=== PATIENT | female | born 1970 | race Caucasian/White ===

== ENCOUNTER → 2016-11-24 | Outpatient (CLI) | payer OTHER ==
[~2016-11-24] MED LIST: ASPIRIN ADULT L81 M1 PO; ATIVAN1 MG PO; CALCIUM 600 PO; CLONIDINE HCL0.2 MG PO; CYCLOBENZAPRINE10 MG PO; FLONASE0.05 %; GABAPENTIN300 MG PO; IBUPROFEN600 MG PO; LOSARTAN POTASS25 MG PO; MELATONIN3 MG; MOTRIN100 MG/5 M PO; PERCOCET1 TA1 PO; SUBOXONE1 MI3 PO; TRAZODONE HCL50 MG PO; VITAMIN D-31000 UNIT PO; WELLBUTRIN100 MG PO
--- NOTE | 2016-11-24 12:50 | DIAGNOSTIC IMAGING REPORT ---
PROCEDURE: US COMPLETE PELVIC W/TRANSVAG INDICATION: REEVAL RT OVARIAN CYST TECHNIQUE: Transabdominal and endovaginal martinez scale and color Doppler sonographic images of the female pelvis were obtained. COMPARISON: Pelvic ultrasound 09/15/2016 FINDINGS: TRANSABDOMINAL SCANS: Anteverted uterus. Normal kidneys. TRANSVAGINAL SCANS: The uterus measures 7.1 x 3.6 x 5.9 cm. 9 mm right posterior fibroid. Normal endometrial measures 7.9 mm. Right ovary measures 2.5 x 2.9 x 1.5 cm with a 1.6 cm follicle. Peripheral calcifications present. Interval resolution of the hemorrhagic cysts. Status post left oophorectomy. IMPRESSION: 1. Interval resolution of the right ovarian hemorrhagic cysts with residual 1.6 cm simple follicle 2. Left oophorectomy 3. 9 mm fibroid
== END ==
LOC: US SRH 11:56
DX: N83.01 Follicular cyst of right ovary (principal); D25.9 Leiomyoma of uterus, unspecified; Z90.721 Acquired absence of ovaries, unilateral

== ENCOUNTER 2016-11-27 08:55 | Outpatient (CLI) | payer OTHER | END 2016-11-27 23:00 | LOC: LAB SRH 08:55 | DX: N83.201 Unspecified ovarian cyst, right side (principal) | CPT/HCPCS: 90001; 90047; 90074; 90155; 90364; 91004; 92863; 95059; 98428 ==

== ENCOUNTER 2016-11-28 06:01 | Day surgery (SDC) | payer OTHER ==
--- NOTE | 2016-11-22 19:37 | HISTORY AND PHYSICAL ---
ADMITTED: 11/28/2016 CHIEF COMPLAINT: 1. Chronic vaginal discharge and right ovarian cysts HISTORY OF PRESENT ILLNESS: This patient has been seen previously for a chronic vaginal discharge despite a previous ablation. The discharge may have some blood in it. An ultrasound was done 09/15/2016 measuring her uterus at 7.8 cm, anteverted, with an endometrium that measured 11 mm. While this is within the normal range for thickness, it is thicker than would have been expected with her previous ablation. Nothing on the uterine ultrasound gave a reason for the chronic discharge that she is having. The discharge has been worked up and has been negative. On her ultrasound the right ovary also measured 4.7 cm with 3 discrete cystic structures measuring 13 mm and 15 mm that were described as hypervascular and were thought to potentially be 2 hemorrhagic cysts. There was a third cyst that measured 3.2 cm with lace-like internal echoes that may be an involuting hemorrhagic cyst, but seemed to be somewhat different from the first 2. The left ovary is surgically absent, although there was a small amount of adnexal fluid on that side. Options for further evaluation of her vaginal discharge were discussed with her and she has chosen to proceed with a hysteroscopy, D&C and repeat ablation. In addition, she was to have had a repeat ultrasound and if the cysts are still present, she would also be having a diagnostic laparoscopy. However, the ultrasound has not been done yet and hopefully she will have that done within the next couple days so that it can be reviewed prior to surgery. She is aware that a diagnostic laparoscopy is a fairly broad scope of surgical options and that any abnormal tissue can be removed at that time including the possibility of removal of her ovary. Attempts will be made to preserve the ovary if possible, since her other ovary has already been removed. The surgical procedures have been reviewed with her including risks and benefits of all of the procedures that have been scheduled. Surgical risks have also been discussed with her including infection, bleeding, damage to her structures, anesthesia, and the possibility of further surgery at the time or in the future. Informed consent has been signed. MEDICAL/SURGICAL HISTORY: Menstrual history: Includes menarche at age 13, LMP 11/15/2016. Obstetrical history: Includes 3 vaginal deliveries in 1989, 1994 and 2000, with 2 abortions in 1992 and 1994. 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 Past medical history: Anxiety, spinal stenosis, hypertension, herniated disk, PID and HSV. MEDICATIONS: 1. Flexeril 10 mg 1 p.o. every other evening. 2. Losartan 25 mg b.i.d. 3. Suboxone 12 mg sublingual daily. 4. Topamax 50 mg 1 daily. 5. Trazodone 100 mg half to 1 tablet every day after meals. ALLERGIES: 1. NO KNOWN DRUG ALLERGIES. SOCIAL HISTORY: She is , G5, P3. Reports smoking 7 cigarettes per day and denies alcohol and drug use. FAMILY HISTORY: Parents and siblings are alive. Her father has hypertension. Her paternal grandfather had diabetes and her paternal grandmother had ovarian cancer. She denies any history of heart disease or stroke. REVIEW OF SYSTEMS: She reports generalized enlarged lymph nodes for the past several months and states that the one in her right submandibular area is firm. She is planning to see Dr. Miller for further evaluation of this. Other than that, she denies headache, ear pain, throat pain, chest pain, shortness of breath, digestive disorders and joint and extremity problems. PHYSICAL EXAMINATION: VITAL SIGNS: She is 5 foot 2 inches, weighs 118.6, blood pressure 112/78, pulse 80, temperature 98.3. GENERAL: She is well-developed, well-nourished, alert, and oriented. HEART: Normal. LUNGS: Normal. ABDOMEN: Soft, nondistended. EXTREMITIES: No clubbing, cyanosis, or edema. IMPRESSION: 1. Chronic vaginal discharge. 2. Cysts in the right ovary, with a history of removal of her left ovary. 3. Enlarged lymph nodes. PLAN: Diagnostic laparoscopy, depending on her repeat ultrasound; hysteroscopy, dilatation and curettage, repeat ablation, scheduled for 11/28/2016.
--- NOTE | 2016-11-28 08:56 | Provider's Discharge Care Plan ---
Problem, Goal, Plan Problem List 1. Postoperative pain Goals: Improve function Instructions: Follow up as directed
--- NOTE | 2016-11-28 08:56 | Provider's Discharge Care Plan ---
Problem, Goal, Plan Problem List 1. Postoperative pain Goals: Improve function Instructions: Follow up as directed
[2016-11-28 10:27] VITALS: BP 130/83
--- NOTE | 2016-11-29 17:21 | OPERATIVE REPORT ---
DATE OF SURGERY: 11/28/2016 SURGEON: Tiffany Lubin DO SUSPECT ARTIST SUPERVISOR: None. PREOPERATIVE DIAGNOSES: 1. Chronic vaginal discharge 2. Left pelvic pain POSTOPERATIVE DIAGNOSES: 1. Chronic vaginal discharge 2. Left pelvic pain PROCEDURE PERFORMED: 1. Hysteroscopy 2. Dilation and currettage 3. Polypectomy ANESTHESIA: LMA. COMPLICATIONS: None. CONDITION: Stable. ESTIMATED BLOOD LOSS: Minimal. FLUIDS: 100 mL of LR. Blood administered: None. DRAINS: 0. URINE OUTPUT: 25 mL preoperatively. PATHOLOGY SPECIMEN: Endocervical curettings, endometrial curettings, including possible polyp. IMPLANTS/GRAFTS: None. SURGICAL FINDINGS: Uterus sounded to 6 cm, narrow, polypoid mass. SURGICAL TECHNIQUE: Preprocedural Note: The patient had been consented for a diagnostic laparoscopy due to some ovarian cysts. An ultrasound a couple days ago showed resolution of those ovarian cysts, and this was discussed with the patient. Although she does have some pelvic pain, she has chosen to cancel the diagnostic laparoscopy portion of her scheduled surgery and will wait to see if the hysteroscopy, D&C improves her pain or not. Options for the future have been discussed with her as well. The patient was taken to the operating room where her anesthesia was obtained. She was prepped and draped in the normal sterile fashion in the lithotomy position. A pelvic exam under anesthesia was normal, and a sterile speculum was placed. The anterior cervical lip was grasped with a single-toothed tenaculum, and the uterus was sounded to 6 cm. The cervix was circumferentially injected with 0.5% Marcaine with epinephrine and was then serially dilated to a #8-Occitan dilator. The hysteroscope was advanced into the cervical canal, which was clear. At or just above the internal os, there were a couple masses that appeared to be consistent with possible polyps. One in particular was visible in the superior cavity and appeared to have a hair attached to it. It was somewhat difficult to ascertain distance above the internal os. The ostia were not seen, and the cavity may have been a post-ablation cavity, or it is possible that it was the entry into the muscle wall. It seemed most consistent with a small, narrow post-ablation endometrial cavity, particularly in view of the hair that was visible in that area. Attempts were made to remove the polypoid mass using forceps. The camera was repositioned, and the polypoid mass appeared to have been removed. The scope was removed. Endocervical curettings were obtained along with endometrial curettings, which were sent along with the possible polyp. All instruments were then removed from the interior of the uterus. The tenaculum was removed as well, and no bleeding was noted from the tenaculum site. All instruments were then removed from the patient, and she was awakened from her anesthesia and taken to the recovery room in stable condition.
== END 2016-11-28 10:07 | disposition home or self-care (01) ==
LOC: OR SRH 06:01 → SCU SRH 06:05 → OR SRH 07:30 → SCU SRH 10:20
PROVIDERS: Obstetrics & Gynecology
PROC: 0UB98ZX Excision of Uterus, Via Natural or Artificial Opening Endoscopic, Diagnostic (ICD-10-PCS; principal; 2016-11-28 07:30)
DX: N89.8 Other specified noninflammatory disorders of vagina (principal); R10.32 Left lower quadrant pain; N83.201 Unspecified ovarian cyst, right side; Z72.0 Tobacco use
CPT/HCPCS: 29240; 50002; 60001; 70002; 80212; 80575; 83432; 83773

== ENCOUNTER 2017-01-02 19:15 | Outpatient (CLI) | payer OTHER | END 2017-01-02 23:00 | LOC: LAB SRH 19:15 | DX: F11.20 Opioid dependence, uncomplicated (principal) | CPT/HCPCS: 90074; 90100; 90197; 95059 ==

== ENCOUNTER 2017-04-19 13:49 | Outpatient (CLI) | payer OTHER ==
--- NOTE | 2017-04-19 16:40 | DIAGNOSTIC IMAGING REPORT ---
PROCEDURE: US SOFT TISSUE THYR/NECK/HEAD INDICATION: ACUTE RECURRENT SIALOADENITIS TECHNIQUE: Luis scale and color Doppler sonographic images of the thyroid gland were obtained. COMPARISON: None. FINDINGS: Submandibular glands are symmetric and have a normal homogeneous appearance. Right gland measures 2.3 x 1.2 cm and left gland 3.3 x 1.4 cm. There are a few prominent right submandibular lymph nodes present, largest 1.7 cm. There are also some left submandibular glands, largest 0.7 cm. No evidence of soft tissue mass or fluid collection. IMPRESSION: 1. Mildly enlarged right submandibular glands, likely reactive. Neoplastic changes are also a consideration. Correlate clinically and recommend follow-up.
== END 2017-04-19 23:00 ==
LOC: US SRH 13:49
DX: K11.22 Acute recurrent sialoadenitis (principal)